=== PATIENT | male | born 1975 | race Caucasian/White ===

== ENCOUNTER 2024-11-10 09:14 | Emergency (ER) | payer MEDICAID ==
[~2024-11-10] VITALS: Ht 188 cm; Wt 85.3 kg
[~2024-11-10 09:14] MED LIST: NO HOME MEDS
[2024-11-10] MEDS: TETanus/Pertussis (Acell)/Diphther VAC/PF (Tdap-Adult) 0.5ml syringe IMVAC ONE (10:25)
[2024-11-10] MEDS: rabies vaccine (PCEC)/PF 2.5 unit kit IMVAC ONE (10:26)
[2024-11-10] MEDS: rabies immune globulin/PF 150 unit/ml inj IMVAC ONE (10:44)
[2024-11-10 11:08] VITALS: BP 129/80; PULSE 61; RESP 16; TEMP 98.3; O2SAT 99
== END 2024-11-10 11:10 | disposition home or self-care (01) ==
LOC: ER 09:14
DX: S51.831A Puncture wound without foreign body of right forearm, initial encounter (principal); Z23 Encounter for immunization; F15.90 Other stimulant use, unspecified, uncomplicated; F12.90 Cannabis use, unspecified, uncomplicated; E11.9 Type 2 diabetes mellitus without complications; Z20.3 Contact with and (suspected) exposure to rabies; W55.01XA Bitten by cat, initial encounter; Y93.89 Activity, other specified; Y92.89 Other specified places as the place of occurrence of the external cause; Y99.8 Other external cause status
CPT/HCPCS: 90376; 90471; 90472; 90675; 90700; 96372; 99284

== ENCOUNTER 2024-11-17 10:57 | Emergency (ER) | payer MEDICAID ==
[~2024-11-17] VITALS: Ht 188 cm; Wt 81.8 kg
[2024-11-17] MEDS: rabies vaccine (PCEC)/PF 2.5 unit kit IMVAC ONE (12:00)
[2024-11-17 12:19] VITALS: BP 142/70; PULSE 68; RESP 16; TEMP 98; O2SAT 99
== END 2024-11-17 12:00 | disposition home or self-care (01) ==
LOC: ER 10:57
DX: S51.851D Open bite of right forearm, subsequent encounter (principal); Z23 Encounter for immunization; Z20.3 Contact with and (suspected) exposure to rabies; E11.9 Type 2 diabetes mellitus without complications; F12.90 Cannabis use, unspecified, uncomplicated; F15.90 Other stimulant use, unspecified, uncomplicated; W55.01XD Bitten by cat, subsequent encounter
CPT/HCPCS: 90471; 90675; 99281; 99283

== ENCOUNTER 2024-11-24 11:36 | Emergency (ER) | payer MEDICAID ==
[~2024-11-24] VITALS: Ht 188 cm; Wt 81.8 kg
[2024-11-24 11:41] VITALS: BP 142/86; PULSE 64; RESP 16; O2SAT 94
[2024-11-24] MEDS: rabies vaccine (PCEC)/PF 2.5 unit kit IMVAC ONE (12:25)
[2024-11-24 12:28] VITALS: TEMP 98
== END 2024-11-24 12:29 | disposition home or self-care (01) ==
LOC: ER 11:37
DX: Z20.3 Contact with and (suspected) exposure to rabies (principal); Z23 Encounter for immunization; S51.831D Puncture wound without foreign body of right forearm, subsequent encounter; E11.9 Type 2 diabetes mellitus without complications; F12.90 Cannabis use, unspecified, uncomplicated; F15.90 Other stimulant use, unspecified, uncomplicated; W54.0XXD Bitten by dog, subsequent encounter
CPT/HCPCS: 90471; 90675; 99281

== ENCOUNTER 2025-01-10 05:50 | Outpatient (CLI) | payer MEDICAID | END 2025-01-10 23:59 | disposition home or self-care (01) | LOC: MRI02 05:50 | PROVIDERS: ATTEND Podiatrist Foot & Ankle Surgery | DX: M19.071 Primary osteoarthritis, right ankle and foot (principal); M79.671 Pain in right foot; M20.41 Other hammer toe(s) (acquired), right foot; R60.0 Localized edema | CPT/HCPCS: 73718 ==

== ENCOUNTER 2025-05-30 14:29 | Outpatient (CLI) | payer MEDICAID ==
--- NOTE | 2025-05-30 16:09 | RADIOLOGY REPORT ---
EXAM: DI LUMBAR SPINE COMPLTE HISTORY: LEFT SIDE SCIATIC PAIN COMPARISON: None TECHNIQUE: Five views of the lumbar spine were performed. FINDINGS: No fracture or listhesis of the lumbar spine. There is a lumbosacral transitional vertebrae. There is advanced lumbar degenerative disc disease. There is mild rotatory lumbar levoscoliosis. The oblique films do not demonstrate spondylolysis. IMPRESSION: 1. Advanced degenerative changes of the lumbar spine without evidence of fracture. 2. Lumbosacral transitional vertebrae. 3. Lumbar levoscoliosis. 4. If the patient complains of lower extremity radicular symptoms, recommend follow-up noncontrast MR I of the lumbar spine for further evaluation.
== END 2025-05-30 23:59 | disposition home or self-care (01) ==
LOC: RAD 14:29
PROVIDERS: ATTEND Nurse Practitioner
DX: M51.16 Intervertebral disc disorders with radiculopathy, lumbar region (principal); M47.816 Spondylosis without myelopathy or radiculopathy, lumbar region; M41.86 Other forms of scoliosis, lumbar region
CPT/HCPCS: 72110